=== PATIENT | female | born 1980 | race Hispanic/Latino ===

== ENCOUNTER 2019-07-22 08:24 | Inpatient (IN) | payer OTHER ==
[~2019-07-22] VITALS: Ht 167.6 cm; Wt 77.5 kg
[2019-07-22 08:55] LABS: CREATININE 0.6 mg/dL (0.5-1.5); POTASSIUM 3.4 mmol/L (3.5-5.1)
[2019-07-22] MEDS ORDERED: SODIUM CHLORIDE 0.9% 1000ML 1,000 ML IV ONE (08:56)
[2019-07-22] MEDS ORDERED: AMPICILLIN SODIUM/SULBACTAM NA 1.5GM VIAL ONE (08:56)
[2019-07-22] MEDS ORDERED: SODIUM CHLORIDE 0.9% 100 ML IV ONE (08:57)
[2019-07-22 08:59] LABS: BASOPHILS % (AUTO) 0.2 % (0.0-5.0); EOSINOPHILS % (AUTO) 0.1 % (0.0-8.0); HEMATOCRIT 33.1 % (36-48); LYMPHOCYTES % (AUTO) 9.4 % (21.0-51.0); MEAN CORPUSCULAR HEMOGLOBIN 25.7 pg (27.0-33.0); MEAN CORPUSCULAR HGB CONC 32.4 g/dL (32.0-36.0); MEAN CORPUSCULAR VOLUME 79.3 fL (79-99); MONOCYTES % (AUTO) 5.7 % (3.0-13.0); NEUTROPHILS % (AUTO) 84.6 % (40.0-77.0); PLATELET COUNT (AUTO) 323 K/uL (130-400); RED BLOOD CELL COUNT(AUTO) 4.18 MIL/uL (4.00-5.50); WHITE BLOOD COUNT (AUTO) 13.2 K/uL (4.8-10.8)
[2019-07-22 09:00] LABS: ALBUMIN 3.4 g/dL (3.5-5.0); BILIRUBIN,TOTAL 0.3 mg/dL (0.2-1.0); TOTAL PROTEIN, SERUM 7.1 g/dL (6.0-8.3)
[2019-07-22] MEDS ORDERED: KETOROLAC TROMETHAMINE 15MG/ML ONE (09:00)
[2019-07-22] MEDS ORDERED: ONDANSETRON HCL 4 MG/2 ML VIAL ONE ×2 (09:00→09:32)
[2019-07-22] MEDS ORDERED: MORPHINE SULFATE 2 MG/ML 1ML SYG ONE (09:32)
[2019-07-22] MEDS ORDERED: MORPHINE SULFATE 4 MG/1ML SYG ONE (09:32)
[2019-07-22 10:39] LABS: APPEARANCE,URINE Clear (CLEAR); BILIRUBIN,URINE Negative (NEGATIVE); COLOR,URINE Yellow (YELLOW); GLUCOSE, URINE (UA) Negative (NEGATIVE); KETONES,URINE 15 mg/dL (NEGATIVE); LEUKOCYTE ESTERASE ,URINE Negative (NEGATIVE); NITRATE,URINE Negative (NEGATIVE); OCCULT BLOOD,URINE Negative (NEGATIVE); PROTEIN,URINE Negative (NEGATIVE)
[2019-07-22] MEDS: SODIUM CHLORIDE 0.9% 1000ML 1,000 ML IV SCH ×2 (11:01→20:14)
[2019-07-22] MEDS ORDERED: ACETAMINOPHEN-CODEINE 300/30MG TAB PO PRN ×4 (11:15→13:30)
[2019-07-22] MEDS ORDERED: ONDANSETRON HCL 4 MG/2 ML VIAL IV PRN (11:15)
[2019-07-22] MEDS ORDERED: VANCOMYCIN PROTOCOL PER PHARMACY IV PRN (11:15)
[2019-07-22] MEDS ORDERED: HYDRALAZINE HCL 20 MG/ML VIAL IV PRN (11:15)
[2019-07-22] MEDS ORDERED: ACETAMINOPHEN 325 MG TAB PO PRN (11:15)
[2019-07-22 11:42] LABS: HEMOGLOBIN A1C 5.6 % (4.0-6.0)
[2019-07-22 12:21] VITALS: BP 107/53
--- NOTE | 2019-07-22 12:30 | NUR ---
Pt received from ER, right hip dressing has some serous sanguineous drainage from the incision. There is some redness around the hip. Pt stated that it was throbbing before it was drained. As per Faith RN at ER the drainage was not sent for cultures and the ER physician already discard the drainage
--- NOTE | 2019-07-22 12:32 | NUR ---
DCP CM met with pt discussed dc plans. Pt is independent prior to admission, lives at home w/mother. Denies any equipments/services. Feels safe to go back home, family able to assist with transportation and needs as necessary. DC plan to home once stable. CM to cont to follow up. Addendum: 07/22/19 at 1236 by AARTI HONEYCUTT LVN CM Amended: Links added.
--- NOTE | 2019-07-22 13:20 | NUR ---
CALL TO DR. MUÑIZ T/C PLACED TO DR. MUÑIZ TO INFORM HIM THAT ER DID NOT SENT A WOUND CULTURE.
[2019-07-22] MEDS ORDERED: COMPOUND IV REFRIGERATED 1 EACH IVSOLN MISC PRN (13:45)
[2019-07-22] MEDS ORDERED: VANCOMYCIN 2 GM in SODIUM CHLORIDE 0.9% 500ML 500 ML IV ONE (14:00)
[2019-07-22 16:32] VITALS: BP 121/65
[2019-07-22] MEDS: CEFTRIAXONE SODIUM 1 GM IV SCH (16:56)
[2019-07-22] MEDS: KETOROLAC TROMETHAMINE 30MG/ML IV PRN (18:46)
[2019-07-22 19:22] VITALS: BP 110/60
[2019-07-22] MEDS ORDERED: GABA300S PO (19:54)
[2019-07-22] MEDS ORDERED: CLON0.1T PO (19:54)
[2019-07-22] MEDS ORDERED: DULO60CA64 PO (19:54)
[2019-07-22] MEDS ORDERED: MIRT30TA6 PO (19:54)
[2019-07-22] MEDS ORDERED: [UNRECOGNIZED DRUG - OTHER] PO (19:54)
[2019-07-22] MEDS ORDERED: BUSP10TA3 PO (19:54)
[2019-07-22] MEDS: FAMOTIDINE/PF 20 MG/2 ML VIAL IV SCH (20:08)
--- NOTE | 2019-07-22 20:08 | NUR ---
FEVER PCP MADE MASTER AUTOMOTIVE GLASS TECHNICIAN AWARE THAT PT'S TEMPERATURE IS 101.2. SHIFT ASSESSMENT DONE, PLEASE REFER TO CHART. DUE MEDS ADMINISTERED, TYLENOL GIVEN FOR FEVER. COLD PACKS APPLIED ON PT. REMOVED HEAVY BLANKET. KEPT RESTED AND COMFORTABLE. PT'S FAMILY IN ROOM AT THIS TIME. Addendum: 07/23/19 at 0018 by SORAYA ARORA RN RN Amended: Links added.
--- NOTE | 2019-07-22 21:00 | NUR ---
MOVED PT COMPLAINTS OF INABILITY TO MOVE HER RT LEG. WENT TO RE-CHECK ON PT. LET PT MOVE TO THE SIDE AND IS ABLE TO MOVE HER RT LEG IN BED BUT CLAIMS OF PAIN TO THE RT HIP. ASSISTED TO THE RESTROOM AND IS ABLE TO MOVE WITH A LIMP ON THE RIGHT LEG. PT'S ROOM IS VERY HOT AND AC IS NOT WORKING. MOVED PT TO ROOM 420. ORIENTED TO ROOM SET-UP. WILL MONITOR PT.
[2019-07-22] MEDS: VANCOMYCIN 1.25 GM in SODIUM CHLORIDE 0.9% 250 ML IV SCH (21:38)
--- NOTE | 2019-07-22 21:55 | NUR ---
SURGEON DR PRESCOTT CALLED AND WAS UPDATED ABOUT PT'S CONDITION. FIRST STATED HE WILL SEE PT IN THE AM AND GAVE ORDERS, BUT THEN STATED HE WILL BE IN TO SE THE PT TONIGHT.
--- NOTE | 2019-07-22 22:20 | NUR ---
MD DR PRESCOTT IN TO SEE PT. EVALUATED PT'S WOUND AND GAVE NEW ORDERS FOR SURGERY. ALREADY EXPLAINED TO PT ABOUT SURGERY. INSTRUCTED PT TO BE NPO AFTER BREAKFAST TOMORROW. PT CHOOSE TO SHOWER IN THE MORNING. FAXED ORDER TO RESOURCE NURSE AND MADE AWARE.
[2019-07-22 23:19] VITALS: BP 95/51
[2019-07-23] VITALS (17 sets, daily range): BP systolic 98–127; BP diastolic 54–78
--- NOTE | 2019-07-23 02:00 | NUR ---
ROUNDS PT FAIRLY ASLEEP WITH RESPIRATIONS EVEN AND UNLABORED. NO NOTED DISTRESS. KEPT UNDISTURBED FOR NOW. WILL MONITOR PT. CALL LIGHT WITHIN REACH.
[2019-07-23] MEDS: CEFTRIAXONE SODIUM 1 GM IV SCH ×2 (02:05→13:51)
[2019-07-23] MEDS: SODIUM CHLORIDE 0.9% 1000ML 1,000 ML IV SCH ×3 (03:30→17:01)
[2019-07-23] MEDS: KETOROLAC TROMETHAMINE 30MG/ML IV PRN ×2 (03:33→12:19)
[2019-07-23] MEDS: VANCOMYCIN 1.25 GM in SODIUM CHLORIDE 0.9% 250 ML IV SCH ×3 (05:39→21:36)
--- NOTE | 2019-07-23 05:39 | NUR ---
CONSENT PT AWAKENED FOR PIV INSERTION. INSERTED G20 TO RT FOREARM, TO BE USED FOR SX. DUE MEDS ADMINISTERED. PT SIGNED CONSENT FOR I AND D OF RT HIP ABSCESS TODAY WITH DR PRESCOTT. FORM PLACED IN CHART. RE-ITERATED TO BE NPO POST BREAKFAST. FOR MORE CARE AND MANAGEMENT.
[2019-07-23] MEDS: ENOXAPARIN SODIUM 40 MG/0.4 ML SYRINGE SQ SCH (09:00)
[2019-07-23] MEDS: FAMOTIDINE/PF 20 MG/2 ML VIAL IV SCH ×2 (09:54→21:36)
--- NOTE | 2019-07-23 16:20 | NUR ---
TRANSPORTED TO OR HOLDING VIA BED
[2019-07-23] MEDS ORDERED: LIDOCAINE PF 2% 5ML ABBOJECT ONE (16:37)
[2019-07-23] MEDS ORDERED: FENTANYL CITRATE PF 50 MCG/1 ML 2ML VIAL ONE (16:38)
[2019-07-23] MEDS ORDERED: PROPOFOL 10 MG/ML 20ML VIAL IV ONE (16:38)
[2019-07-23] MEDS ORDERED: MIDAZOLAM HCL 1 MG/ML 2ML VIAL ONE (16:50)
[2019-07-23] MEDS ORDERED: BUPIVACAINE/EPI/PF 0.5% 30ML VIAL IJ ONE (17:10)
[2019-07-23] MEDS ORDERED: KETOROLAC TROMETHAMINE 30MG/ML ONE (17:24)
[2019-07-23] MEDS ORDERED: ONDANSETRON HCL 4 MG/2 ML VIAL ONE (17:25)
[2019-07-23] MEDS ORDERED: BACITRACIN 50,000 UNIT VIAL IRRIG ONE (17:27)
[2019-07-23] MEDS ORDERED: MEPERIDINE-PF 25 MG/ML SYG ONE ×2 (17:28→17:35)
--- NOTE | 2019-07-23 18:22 | NUR ---
S/P I&D OF RIGHT BUTTOCK AREA WOUND FROM SPIDER BITE, AREA DRY AND DRESSING INTACT, WITH PACKING 1/2 INCH IODOFORM 4X4 AND ABD PLACED ON TOP AND TAPE SECURELY AND BRIEF HOLDING HOLDING DRESSING SITE. ORDERS FOR DAILY DRESSING CHANGES, REGULAR DIET , PERCOCET5/325 1 TAB EVERY 4 HOURS NEEDED B/P 108/56 R 18 T 98.6 O2 SATS ON ROOM AIR 99. WILL CONTINUE TO MONITOR
[2019-07-23] MEDS: OXYCODONE/ACETAMIN 5/325MG TAB PO PRN (19:55)
[2019-07-24] MEDS: OXYCODONE/ACETAMIN 5/325MG TAB PO PRN ×4 (02:14→20:56)
[2019-07-24] MEDS: CEFTRIAXONE SODIUM 1 GM IV SCH ×2 (02:14→14:27)
[2019-07-24 04:00] VITALS: BP 98/67
[2019-07-24 04:29] LABS: BASOPHILS % (AUTO) 0.1 % (0.0-5.0); EOSINOPHILS % (AUTO) 0.9 % (0.0-8.0); HEMATOCRIT 26.6 % (36-48); LYMPHOCYTES % (AUTO) 12.2 % (21.0-51.0); MEAN CORPUSCULAR HEMOGLOBIN 26.1 pg (27.0-33.0); MEAN CORPUSCULAR HGB CONC 32.6 g/dL (32.0-36.0); MEAN CORPUSCULAR VOLUME 79.9 fL (79-99); MONOCYTES % (AUTO) 6.4 % (3.0-13.0); NEUTROPHILS % (AUTO) 80.4 % (40.0-77.0); PLATELET COUNT (AUTO) 236 K/uL (130-400); RED BLOOD CELL COUNT(AUTO) 3.32 MIL/uL (4.00-5.50); RED CELL DISTRIBUTION WIDTH 19.1 % (11.0-15.5); WHITE BLOOD COUNT (AUTO) 10.7 K/uL (4.8-10.8)
[2019-07-24 04:48] LABS: CREATININE 0.5 mg/dL (0.5-1.5); POTASSIUM 3.4 mmol/L (3.5-5.1)
[2019-07-24] MEDS: VANCOMYCIN 1.25 GM in SODIUM CHLORIDE 0.9% 250 ML IV SCH ×3 (05:55→22:12)
[2019-07-24] MEDS: SODIUM CHLORIDE 0.9% 1000ML 1,000 ML IV SCH ×3 (06:00→22:12)
[2019-07-24 07:30] VITALS: BP 106/68
[2019-07-24] MEDS: FAMOTIDINE/PF 20 MG/2 ML VIAL IV SCH ×2 (08:57→20:56)
[2019-07-24] MEDS: ENOXAPARIN SODIUM 40 MG/0.4 ML SYRINGE SQ SCH (08:58)
[2019-07-24 11:00] VITALS: BP 100/58
[2019-07-24] MEDS ORDERED: POTASSIUM CHLORIDE 20MEQ/100ML 100 ML IV PRN (12:00)
[2019-07-24] MEDS ORDERED: POTASSIUM CHLORIDE 10% ELIXIR 20 MEQ/15 ML UDCUP PO PRN (12:00)
[2019-07-24] MEDS ORDERED: LIDOCAINE HCL-MPF 1% 2ML VIAL IV PRN (12:00)
[2019-07-24] MEDS ORDERED: POTASSIUM CHLORIDE 20 MEQ ERTAB PO ONE (12:11)
[2019-07-24] MEDS ORDERED: MORPHINE SULFATE 2 MG/ML 1ML SYG IVP PRN (13:00)
[2019-07-24 15:30] VITALS: BP 112/64
--- NOTE | 2019-07-24 16:42 | NUR ---
cm note spoke to dr mayorga, and states pt can possible go home on saturday with Home health if setup. states will not sign the home health orders to ask hospitalist. per Cyndy DAIRY INSPECTOR states usually do not sign home health orderes but, will ask MD. call also made to dr neal surgeon, and states he will sign home health orders for pt. spoke to pt and obtained choice letter and VIRGIL. referral faxed to [facility] provider for [facility]. pending approval
--- NOTE | 2019-07-24 17:00 | NUR ---
cm note spoke to Tia at [facility], states pt has been approved and nurse can call report at ne. informed her of plan for discharge on saturday per md. states they will visit pt on saturday if discharged saturday. nurse to call report at [facility]. updated primary nurse Ambreen.
[2019-07-24 19:20] VITALS: BP 101/67
[2019-07-24 23:30] VITALS: BP 114/69
[2019-07-25] MEDS: POTASSIUM CHLORIDE 20 MEQ ERTAB PO PRN ×2 (00:11→05:02)
[2019-07-25 03:18] VITALS: BP 107/64
[2019-07-25 04:18] LABS: BASOPHILS % (AUTO) 0.4 % (0.0-5.0); EOSINOPHILS % (AUTO) 0.9 % (0.0-8.0); HEMATOCRIT 27.6 % (36-48); LYMPHOCYTES % (AUTO) 21.9 % (21.0-51.0); MEAN CORPUSCULAR HEMOGLOBIN 26.1 pg (27.0-33.0); MEAN CORPUSCULAR HGB CONC 32.8 g/dL (32.0-36.0); MEAN CORPUSCULAR VOLUME 79.7 fL (79-99); MONOCYTES % (AUTO) 6.3 % (3.0-13.0); NEUTROPHILS % (AUTO) 70.5 % (40.0-77.0); PLATELET COUNT (AUTO) 301 K/uL (130-400); RED BLOOD CELL COUNT(AUTO) 3.46 MIL/uL (4.00-5.50); RED CELL DISTRIBUTION WIDTH 19.3 % (11.0-15.5); WHITE BLOOD COUNT (AUTO) 7.9 K/uL (4.8-10.8)
[2019-07-25 04:33] LABS: CREATININE 0.5 mg/dL (0.5-1.5); POTASSIUM 3.5 mmol/L (3.5-5.1)
[2019-07-25] MEDS: VANCOMYCIN 1.25 GM in SODIUM CHLORIDE 0.9% 250 ML IV SCH (05:05)
[2019-07-25 07:30] VITALS: BP 119/55
--- NOTE | 2019-07-25 10:00 | NUR ---
PT OFFERED A SHOWER, SHE DENIED, STATED SHE WOULD WAIT FOR HER DAUGHTER TO GET HERE PT EDUCATED ON PAIN MEDICATION and CONTACT PRECAUTIONS
[2019-07-25] MEDS: ENOXAPARIN SODIUM 40 MG/0.4 ML SYRINGE SQ SCH (10:03)
[2019-07-25] MEDS: FAMOTIDINE/PF 20 MG/2 ML VIAL IV SCH (10:03)
[2019-07-25] MEDS ORDERED: CLIN300C9 PO (10:18)
--- NOTE | 2019-07-25 12:30 | NUR ---
DR. DUVALL ROUNDED , RX IN THE CHART
--- NOTE | 2019-07-25 12:36 | NUR ---
DAUGHTER AT BED SIDE, PT AWARE SHE HAS ORDERS FOR D/C AND I NEED TO DO THE DRESSING CHANGE BEFORE SHE LEAVES ORDRED BY DR. CHAN, BUT PATIENT WANTED TO SHOWER FIRST PATIENT OFFERED A SHOWER . HOWEVER PATIENT STATES SHE WANTS THE MORPHINE NOW AND THEN SHOWER QUICKLY SO SHE CAN GO HOME AND SLEEP WITH THE MORPHINE GIVEN . PATIENT EDUCATED ON MEDICATION SAFETY AND MEDICATION SIDE EFFECTS, PT AWARE THAT IF SHE HAS MORPHINE , WE CANNOT DISCHARGE RIGHT AWAY AND SHE WOULD HAVE TO STAY A LITTLE MORE, PERHAPS FOR A COUPLE OF HRS TO MONITOR SINCE MS CAN LOWER RESPIRATIONS OR BP , PT CAN FEEL DIZZY AND FALL ON HER WAY HOME, TO IN AND OUT THE CAR AND IS NOT SAFE TO D/C RIGHT AFTER MORPHINE IS GIVE. PLUS MS IS NOT DUE YET. MS IS PRN Q4 HRS. AND IT HAS NOT BEEN 4 HRS SINCE HER LAST DOSE. PATIENT WAS OFFERED PO MEDICATION THAT SHE HAS AVAILABLE, SHE WAS MADE AWARE , SHE CAN HAVE PO PAIN MEDICATION AT THIS TIME. PT REFUSED PO MEDICATION. SHE WANTS MORPHINE AND SHE IS REFUSING DRESSING CHANGES. PT VERBALLY AGGRESSIVE, CURSING , STATING SHE DOES NOT WANT WOUND CARE AND IS LEAVING "NOW" PT EDUCATED AGAIN, ON DISCHARGE PLANNING, AWARE SHE HAS A PRESCRIPTION FOR ANTIBIOTICS AND THAT DUE TO THE SENSITIVITY OF THE WOULD CULTURE, SHE DOES REQUIRE SPECIFIC ANTIBIOTICS AND SHE WAS EDUCATED AGAIN OF THE IMPORTANCE OF WOUND CARE. PATIENT AND FAMILY EDUCATED ON PACKING THE DRESSING WITH IODOFORM PT STATED "I DONT GIVE A FUCK, FUCK THIS AM LEAVING NOW, I DONT WANT THE D/C PAPERWORK, I DO NOTWANT THE PRESCRIPTION" CHARGE NURSE CALLED TO THE FLOOR.
--- NOTE | 2019-07-25 12:39 | NUR ---
CHARGE NURSE AWARE OF SITUATION, CHARGE NURSE WENT IN THE ROOM TO TALK TO PATIENT PATIENT WAS ALREADY CHANGED, WITH HER BELONGING AT HAND, CHARGE NURSE ASKED PATIENT TO WAIT FOR PRESCRIPTION , SO SHE AT LEAST COULD BE DISCHARGE AND GET HER HOME HEALTH SET UP, SINCE REPORT TO HOME HEALTH STILL NEEDED TO BE DONE SINCE WE WERE PENDING ELOINA CARDONA RECOMMENDATIONS FOR ANTIBIOTICS. PATIENT DID NOT ALLOW CHARGE NURSE TO FINISHED, SHE WALKED AWAY TO THE ELEVATOR STATING SHE DID NOT WANT ANY OF IT. SHE DID NOT WANT HER DISCHARGE, SHE DID NOT WANT HER ANTIBIOTIC RX, NOR DRESSING CHANGE. PATIENT WALKED AWAY
== END 2019-07-25 12:39 | disposition left against medical advice (07) | DRG 854 ==
LOC: EDH 08:24 → EDHIP 11:01 → 4CH 11:59
PROVIDERS: ADMIT Internal Medicine; ATTEND Internal Medicine
PROC: 0J9L0ZZ Drainage of Right Upper Leg Subcutaneous Tissue and Fascia, Open Approach (ICD-10-PCS; principal; 2019-07-22)
PROC: 0J9L0ZZ Drainage of Right Upper Leg Subcutaneous Tissue and Fascia, Open Approach (ICD-10-PCS; 2019-07-22)
DX: A41.01 Sepsis due to Methicillin susceptible Staphylococcus aureus (principal); L03.115 Cellulitis of right lower limb; L02.415 Cutaneous abscess of right lower limb; E87.1 Hypo-osmolality and hyponatremia; L02.31 Cutaneous abscess of buttock; T63.301A Toxic effect of unspecified spider venom, accidental (unintentional), initial encounter; E87.6 Hypokalemia; D64.9 Anemia, unspecified; G89.29 Other chronic pain; I10 Essential (primary) hypertension; M19.90 Unspecified osteoarthritis, unspecified site; E66.9 Obesity, unspecified; Z68.27 Body mass index [BMI] 27.0-27.9, adult; Z90.710 Acquired absence of both cervix and uterus; Z96.652 Presence of left artificial knee joint; Z98.1 Arthrodesis status; Z98.84 Bariatric surgery status; Z90.711 Acquired absence of uterus with remaining cervical stump; Y92.89 Other specified places as the place of occurrence of the external cause
CPT/HCPCS: 36415; 80048; 80053; 80202; 81003; 83036; 83605; 84145; 85025; 87040; 87070; 87076; 87077; 87186; 87205; A4606; A6266; G0378; J0295; J0696; J1650; J1885; J2001; J2175; J2250; J2270; J2405; J2704; J3010; J3370; J3490; J7030; J7040

== ENCOUNTER 2021-06-25 16:44 | Emergency (ER) | payer OTHER ==
[~2021-06-25] VITALS: Ht 167.6 cm; Wt 93.9 kg
[~2021-06-25 16:44] MED LIST: BUSP10TA3 PO; CLIN300C10 PO; CLON0.1T PO; DULO60CA64 PO; GABA300S PO; MIRT-93 PO; [UNRECOGNIZED DRUG - OTHER] PO
[2021-06-25 16:59] VITALS: BP 162/105
[2021-06-25 17:12] LABS: BASOPHILS % (AUTO) 0.4 % (0.0-5.0); EOSINOPHILS % (AUTO) 1.8 % (0.0-8.0); HEMATOCRIT 32.9 % (36-48); LYMPHOCYTES % (AUTO) 19.5 % (21.0-51.0); MEAN CORPUSCULAR HEMOGLOBIN 23.5 pg (27.0-33.0); MEAN CORPUSCULAR HGB CONC 29.8 g/dL (32.0-36.0); MEAN CORPUSCULAR VOLUME 78.9 fL (79-99); MONOCYTES % (AUTO) 7.3 % (3.0-13.0); NEUTROPHILS % (AUTO) 70.7 % (40.0-77.0); PLATELET COUNT (AUTO) 381 K/uL (130-400); RED BLOOD CELL COUNT(AUTO) 4.17 MIL/uL (4.00-5.50); RED CELL DISTRIBUTION WIDTH 18.7 % (11.0-15.5); WHITE BLOOD COUNT (AUTO) 7.8 K/uL (4.8-10.8)
[2021-06-25 17:18] LABS: APPEARANCE,URINE Clear (CLEAR); BILIRUBIN,URINE Negative (NEGATIVE); COLOR,URINE Yellow (YELLOW); GLUCOSE, URINE (UA) Negative (NEGATIVE); KETONES,URINE Negative (NEGATIVE); LEUKOCYTE ESTERASE ,URINE Negative (NEGATIVE); NITRATE,URINE Negative (NEGATIVE); OCCULT BLOOD,URINE Negative (NEGATIVE); PROTEIN,URINE Negative (NEGATIVE)
[2021-06-25 17:21] LABS: INR 0.94 (0.85-1.15); PROTHROMBIN TIME 10.3 SEC (9.6-11.6)
[2021-06-25 17:22] LABS: PARTIAL THROMBOPLASTIN TIME 30.7 SEC (26.3-35.5)
[2021-06-25 17:26] LABS: ALBUMIN 3.4 g/dL (3.5-5.0); BILIRUBIN,TOTAL 0.1 mg/dL (0.2-1.0); CREATININE 0.6 mg/dL (0.5-1.5); POTASSIUM 4.2 mmol/L (3.5-5.1); TOTAL PROTEIN, SERUM 6.8 g/dL (6.0-8.3)
[2021-06-25] MEDS ORDERED: LORAZEPAM 2 MG/ML 1 ML VIAL IVP ONE (17:30)
[2021-06-25 17:37] LABS: B-TYPE NATRIURETIC PEPTIDE 11 pg/mL (0-100)
[2021-06-25 17:41] VITALS: BP 153/102
[2021-06-25] MEDS ORDERED: HYDR25CA PO (18:18)
[2021-06-25 18:37] VITALS: BP 128/87
== END 2021-06-25 18:38 | disposition home or self-care (01) ==
LOC: EDH 16:44
DX: R07.89 Other chest pain (principal); F41.9 Anxiety disorder, unspecified; E11.9 Type 2 diabetes mellitus without complications; F31.9 Bipolar disorder, unspecified; F17.200 Nicotine dependence, unspecified, uncomplicated; Z79.899 Other long term (current) drug therapy; Z98.84 Bariatric surgery status
CPT/HCPCS: 36415; 71045; 80053; 81003; 81025; 82550; 83880; 84484; 85025; 85378; 85610; 85730; 93005; 93971; 96374; J2060

== ENCOUNTER 2023-08-01 06:59 | Day surgery (SDC) | payer OTHER ==
[2023-08-01] VITALS (9 sets, daily range): BP systolic 110–127; BP diastolic 72–84; PULSE 70–78; RESP 15–16
[~2023-08-01] VITALS: Ht 167.6 cm; Wt 115.2 kg
[~2023-08-01 06:59] MED LIST changes: +BACL10TA PO; -BUSP10TA3 PO; -CLIN300C10 PO; -CLON0.1T PO; +DICY20TA3 PO; -DULO60CA64 PO; +FURO20TA4 PO; +GABA300C PO; -GABA300S PO; -MIRT-93 PO; +TRAZ150T79 PO; -[UNRECOGNIZED DRUG - OTHER] PO
[2023-08-01] MEDS ORDERED: PROPOFOL 10 MG/ML 20ML VIAL IV ONE (08:02)
[2023-08-01] MEDS ORDERED: LIDOCAINE PF 100MG/5ML (2%) SYRINGE 5ML ONE (08:02)
[2023-08-01] MEDS ORDERED: 0.9%NACL 1000ML 1,000 ML IV ONE (09:41)
== END 2023-08-01 09:25 | disposition home or self-care (01) ==
LOC: DAH 06:59 → ENDO 06:59
PROVIDERS: ATTEND Surgery
DX: K31.6 Fistula of stomach and duodenum (principal); D50.9 Iron deficiency anemia, unspecified; K21.9 Gastro-esophageal reflux disease without esophagitis; E66.01 Morbid (severe) obesity due to excess calories; K25.9 Gastric ulcer, unspecified as acute or chronic, without hemorrhage or perforation; F41.9 Anxiety disorder, unspecified; F17.210 Nicotine dependence, cigarettes, uncomplicated; Z98.84 Bariatric surgery status; Z98.890 Other specified postprocedural states; Z90.49 Acquired absence of other specified parts of digestive tract; Z79.899 Other long term (current) drug therapy; Z90.710 Acquired absence of both cervix and uterus; Z72.89 Other problems related to lifestyle; Z68.41 Body mass index [BMI] 40.0-44.9, adult; Z96.652 Presence of left artificial knee joint
CPT/HCPCS: 43270; J7030 ×2; J2001; J2704; A4620; A4215 ×2; A4223; A7002; A4222; A4221; A4663; A4216; A4606; 43235; J3490

== ENCOUNTER 2023-08-22 06:34 | Day surgery (SDC) | payer OTHER ==
[2023-08-22] VITALS (12 sets, daily range): BP systolic 103–129; BP diastolic 63–84; PULSE 80–90; RESP 12–18
[~2023-08-22] VITALS: Ht 167.6 cm; Wt 115.2 kg
[2023-08-22] MEDS ORDERED: PROPOFOL 10 MG/ML 20ML VIAL IV ONE ×3 (08:12→08:24)
== END 2023-08-22 10:01 | disposition home or self-care (01) ==
LOC: ENDO 06:34 → DAH 06:34 → ENDO 10:01
PROVIDERS: ATTEND Surgery
DX: K31.6 Fistula of stomach and duodenum (principal); K22.89 Other specified disease of esophagus; K31.89 Other diseases of stomach and duodenum; K25.9 Gastric ulcer, unspecified as acute or chronic, without hemorrhage or perforation; F41.9 Anxiety disorder, unspecified; K44.9 Diaphragmatic hernia without obstruction or gangrene; K21.9 Gastro-esophageal reflux disease without esophagitis; D50.9 Iron deficiency anemia, unspecified; E66.01 Morbid (severe) obesity due to excess calories; Z68.41 Body mass index [BMI] 40.0-44.9, adult; Z98.84 Bariatric surgery status; Z83.3 Family history of diabetes mellitus; Z82.3 Family history of stroke; Z79.1 Long term (current) use of non-steroidal anti-inflammatories (NSAID); Z82.49 Family history of ischemic heart disease and other diseases of the circulatory system; Z87.891 Personal history of nicotine dependence; Z79.899 Other long term (current) drug therapy; Z90.49 Acquired absence of other specified parts of digestive tract; Z90.710 Acquired absence of both cervix and uterus; Z98.890 Other specified postprocedural states
CPT/HCPCS: 43270; J2704 ×3; A4620; A4215; A4223; A7002; A4222; A4221; A4663; J7030; A4606; J3490

== ENCOUNTER 2023-11-07 06:33 | Day surgery (SDC) | payer OTHER ==
[~2023-11-07] VITALS: Ht 167.6 cm; Wt 112.0 kg
[2023-11-07] VITALS (11 sets, daily range): BP systolic 119–147; BP diastolic 69–93; PULSE 72–87; RESP 15–17
[~2023-11-07 06:33] MED LIST changes: +DEXL60CA6 PO; +PHEN-308 PO; +TOPI50CA6 PO
[2023-11-07] MEDS ORDERED: PROPOFOL 10 MG/ML 20ML VIAL IV ONE (08:23)
[2023-11-07] MEDS ORDERED: FENTANYL CITRATE PF 50 MCG/1 ML 2ML VIAL ONE (08:23)
[2023-11-07] MEDS ORDERED: LIDOCAINE HCL 1% 20 ML VIAL ONE (08:24)
== END 2023-11-07 09:58 | disposition home or self-care (01) ==
LOC: ENDO 06:33 → DAH 06:33 → ENDO 09:58
PROVIDERS: ATTEND Surgery
DX: R10.13 Epigastric pain (principal); K31.6 Fistula of stomach and duodenum; K22.89 Other specified disease of esophagus; K21.9 Gastro-esophageal reflux disease without esophagitis; K25.9 Gastric ulcer, unspecified as acute or chronic, without hemorrhage or perforation; D50.9 Iron deficiency anemia, unspecified; E66.01 Morbid (severe) obesity due to excess calories; F32.A Depression, unspecified; M79.7 Fibromyalgia; F17.210 Nicotine dependence, cigarettes, uncomplicated; Z98.890 Other specified postprocedural states; Z90.49 Acquired absence of other specified parts of digestive tract; Z98.84 Bariatric surgery status; Z98.0 Intestinal bypass and anastomosis status; Z72.89 Other problems related to lifestyle; Z90.710 Acquired absence of both cervix and uterus; Z96.652 Presence of left artificial knee joint; Z68.39 Body mass index [BMI] 39.0-39.9, adult
CPT/HCPCS: 43270; J3010; J2704; A4620; A4215 ×2; A4223; A7002; A4222; A4221; A4663; J7030; A4606; J3490

== ENCOUNTER 2023-12-19 06:08 | Day surgery (SDC) | payer OTHER ==
[~2023-12-19] VITALS: Ht 167.6 cm; Wt 111.1 kg
[2023-12-19] VITALS (8 sets, daily range): BP systolic 120–148; BP diastolic 72–82; PULSE 78–127; RESP 12–18
[2023-12-19] MEDS ORDERED: 0.9%NACL 1000ML 1,000 ML IV ONE (06:26)
[2023-12-19] MEDS ORDERED: FAMO20TA8 PO (06:41)
[2023-12-19] MEDS ORDERED: DICY20TA3 PO (06:41)
[2023-12-19] MEDS ORDERED: CARAL PO (06:41)
[2023-12-19] MEDS ORDERED: FUROSEMIDE PO (06:41)
[2023-12-19] MEDS ORDERED: LURA40TA2 PO (06:41)
[2023-12-19] MEDS ORDERED: OMEP40CA21 PO (06:41)
[2023-12-19] MEDS ORDERED: GABAPENTIN PO (06:41)
[2023-12-19] MEDS ORDERED: HYDR-3422 PO (06:41)
[2023-12-19] MEDS ORDERED: PROPOFOL 10 MG/ML 20ML VIAL IV ONE (07:25)
[2023-12-19] MEDS ORDERED: GLYCOPYRROLATE 0.2 MG/ML 5 ML VIAL ONE (07:26)
== END 2023-12-19 09:00 | disposition home or self-care (01) ==
LOC: DAH 06:08
PROVIDERS: ATTEND Surgery
DX: K31.6 Fistula of stomach and duodenum (principal); K21.00 Gastro-esophageal reflux disease with esophagitis, without bleeding; K31.89 Other diseases of stomach and duodenum; K22.89 Other specified disease of esophagus; K25.9 Gastric ulcer, unspecified as acute or chronic, without hemorrhage or perforation; D50.9 Iron deficiency anemia, unspecified; K64.9 Unspecified hemorrhoids; F41.9 Anxiety disorder, unspecified; K59.04 Chronic idiopathic constipation; K29.30 Chronic superficial gastritis without bleeding; E66.01 Morbid (severe) obesity due to excess calories; Z68.39 Body mass index [BMI] 39.0-39.9, adult; Z85.038 Personal history of other malignant neoplasm of large intestine; Z82.49 Family history of ischemic heart disease and other diseases of the circulatory system; Z83.3 Family history of diabetes mellitus; Z82.3 Family history of stroke; Z98.84 Bariatric surgery status; Z90.49 Acquired absence of other specified parts of digestive tract; Z90.710 Acquired absence of both cervix and uterus; Z98.890 Other specified postprocedural states
CPT/HCPCS: 43270; 43239; J7030 ×2; J2704; J3490; A4620; A4215 ×2; A4223; A7002; A4222; A4221; A4663; A4606

== ENCOUNTER → 2024-05-05 | Outpatient (CLI) | payer OTHER ==
[~2024-05-05] MED LIST changes: -BACL10TA PO; +CARAL PO; +DEXL60CA3 PO; -DEXL60CA6 PO; +FAMO20TA8 PO; -FURO20TA4 PO; -GABA300C PO; +LINA290C PO; -TRAZ150T79 PO
== END | disposition home or self-care (01) ==
LOC: RAH 09:47
PROVIDERS: ATTEND Surgery
DX: K31.6 Fistula of stomach and duodenum (principal)
CPT/HCPCS: 74240

== ENCOUNTER 2024-07-09 08:52 | Day surgery (SDC) | payer OTHER ==
[~2024-07-09] VITALS: Ht 167.6 cm; Wt 113.4 kg
[2024-07-09] VITALS (13 sets, daily range): BP systolic 102–143; BP diastolic 66–84; PULSE 69–84; RESP 15–20; TEMP 97.2–98.1
[~2024-07-09 08:52] MED LIST changes: +CARI4.5C PO; +HYDR-3422 PO; -PHEN-308 PO; +PHEN-615 PO; +SERT-440 PO; -TOPI50CA6 PO; +TOPI50CA7 PO
[2024-07-09] MEDS ORDERED: proPOFol 10 MG/ML 20ML VIAL IV ONE ×4 (09:44→10:18)
[2024-07-09] MEDS: 0.9%NACL 1000ML 1,000 ML IV ONE (09:44)
== END 2024-07-09 11:47 | disposition home or self-care (01) ==
LOC: DAH 08:52 → ENDO 08:52
PROVIDERS: ATTEND Surgery
DX: K63.2 Fistula of intestine (principal); K22.89 Other specified disease of esophagus; E66.01 Morbid (severe) obesity due to excess calories; F41.9 Anxiety disorder, unspecified; K21.9 Gastro-esophageal reflux disease without esophagitis; Z68.41 Body mass index [BMI] 40.0-44.9, adult; Z90.49 Acquired absence of other specified parts of digestive tract; Z98.84 Bariatric surgery status; Z90.710 Acquired absence of both cervix and uterus; Z96.652 Presence of left artificial knee joint; Z79.899 Other long term (current) drug therapy
CPT/HCPCS: C9901; J7030 ×2; J2704 ×4; A4620; A4215 ×2; A4223; A4657; A7002; A4222; A4221; A4663; A4606; 43270; J3490

== ENCOUNTER 2025-08-05 06:35 | Day surgery (SDC) | payer OTHER ==
[~2025-08-05] VITALS: Ht 167.6 cm; Wt 122.9 kg
[2025-08-05] VITALS (16 sets, daily range): BP systolic 103–119; BP diastolic 67–75; PULSE 70–82; RESP 14–16; TEMP 96.8–97.5
[~2025-08-05 06:35] MED LIST changes: +BACL20TA PO; +CAPLYTA PO; -CARAL PO; -CARI4.5C PO; +FURO40TA5 PO; -LINA290C PO; -PHEN-615 PO; +PREG300C20 PO; +TOPI-97 PO; -TOPI50CA7 PO; +TRAZ300T2 PO
[2025-08-05] MEDS: 0.9%NACL 1000ML 1,000 ML IV ONE (06:55)
[2025-08-05] MEDS ORDERED: VALB80CA PO (06:58)
[2025-08-05] MEDS ORDERED: LUMA42CA4 PO (06:58)
[2025-08-05] MEDS ORDERED: SUCCINYLCHOLINE CHLORIDE 20 MG/ML 10 ML VIAL ONE (07:27)
[2025-08-05] MEDS ORDERED: LIDOCAINE PF 100MG/5ML (2%) SYRINGE 5ML ONE (07:28)
[2025-08-05] MEDS ORDERED: GLYCOPYRROLATE 0.2 MG/ML 5 ML VIAL ONE (08:28)
[2025-08-05] MEDS ORDERED: NEOSTIGMINE METHYLSULFATE 1MG/ML IV ONE (08:29)
--- NOTE | 2025-08-05 11:16 | NUR ---
BOTH PT AND MOTHER GIVEN VERBAL AND WRITTEN DISCHARGE INSTRUCTIONS. IV REMOVED SITE ASYMPTOMATIC. PT TAKEN OUT VIA WHEELCHAIR MOTHER DRIVING
== END 2025-08-05 11:23 | disposition home or self-care (01) ==
LOC: DAH 06:35
PROVIDERS: ATTEND Surgery
DX: K63.2 Fistula of intestine (principal); E66.01 Morbid (severe) obesity due to excess calories; K22.89 Other specified disease of esophagus; F41.9 Anxiety disorder, unspecified; K21.9 Gastro-esophageal reflux disease without esophagitis; Z98.84 Bariatric surgery status; Z86.0100 Personal history of colon polyps, unspecified; Z68.42 Body mass index [BMI] 45.0-49.9, adult; Z79.82 Long term (current) use of aspirin; Z79.899 Other long term (current) drug therapy; Z90.49 Acquired absence of other specified parts of digestive tract; Z90.710 Acquired absence of both cervix and uterus; Z96.652 Presence of left artificial knee joint
CPT/HCPCS: 43270; C9901; Q4148; J3010; J1100; J0330; J7030; J3490 ×2; J2003; J2704; J2405 ×2; J2710; J2371; C1726; A4215 ×2; A4223; A4657 ×3; A7002; A4222; A4221; A4663; A4606; 15777